=== PATIENT | male | born 1980 | race Caucasian/White ===

== ENCOUNTER 2020-06-12 23:14 | Emergency (ER) | payer OTHER ==
[2020-06-12] MEDS ORDERED: Sodium Chloride 0.9% 10 ML Syringe FLUSH PRN (23:27)
[2020-06-12] MEDS ORDERED: Aspirin 81 MG Tab.Chew PO ONE (23:27)
[2020-06-12] MEDS ORDERED: Sodium Chloride 0.9% 2.5 ML Syringe FLUSH PRN (23:27)
[2020-06-12] MEDS ORDERED: Nitroglycerin 0.4 MG Tab.SL SL PRN (23:27)
--- NOTE | 2020-06-12 23:33 | EDM.PDOC ---
ED HPI GENERAL MEDICAL PROBLEM - General Chief Complaint: Chest Pain Stated Complaint: CHEST PAIN,SHORTNESS OF BREATHE Time Seen by Provider: 06/12/20 23:23 - History of Present Illness INITIAL COMMENTS - FREE TEXT/NARRATIVE: History of present illness: [] Woke up with chest pain at 1130 this morning. He got a little worse when he went to work. When he rested it was little better but when he got up moved around tonight it was worse. He has intermittent diaphoresis today. He also has shortness of breath. He does not have a seizure. Pain is a burning across the anterior chest. Moderately severe at times. Review of systems: As per history of present illness and below otherwise all systems reviewed and negative. Past medical history: As per history of present illness and as reviewed below otherwise noncontributo ry. Diabetic or hypertensive but does have cholesterol issues Surgical history: As per history of present illness and as reviewed below otherwise noncontributory. Number smoker Social history: No reported history of drug or alcohol abuse. Family history: As per history of present illness and as reviewed below otherwise noncontributory. No heart attacks but grandmother had a stroke in her 80s Physical exam: Constitutional - well developed, well-nourished and in no acute distress HEENT - normocephalic, no evidence of trauma - external nose and mouth normal - no mass in neck and no JVD - mucosae moist EYES - full EOM, PERRL, no icterus - no evidence of inflammation, injection, or drainage Respiratory - no respiratory distress, equal bilateral expansion, lungs clear to auscultation and no abnormal lung sounds Cardiovascular - Regular Rhythm with S1 and S2 appreciated and no murmur, gallop or rub. GI - abdomen soft without distension or organomegaly - normal bowel sounds - no guard or rebound Musculoskeletal no gross deformity of long bones or joints - no tenderness, swelling or edema Neurologic - Alert and oriented times four - CN II-XII grossly intact - motor sensory and coordination symmetrically normal Psychiatric - appropriate mood and affect with normal thought content Hematologic - No petechiae or purpura - mucosa appropriate color and sclera not pale - normal nail bed color and refill Integument - no rash or evidence of trauma - normal turgor Diagnostics: [] Therapeutics: [] Impression: [] Plan: [] Definitive disposition and diagnosis as appropriate pending reevaluation and review of above. chest Pain Score (Numeric/FACES): 4 - Related Data Allergies Allergy/AdvReac Type Severity Reaction Status Date / Time erythromycin base Allergy Nausea and Verified 06/12/20 23:21 Vomiting Home Meds: Home Meds Amitriptyline [Elavil] 50 mg PO DAILY 06/12/20 [History] Divalproex Sodium [Depakote] 250 mg PO DAILY 06/12/20 [History] SUMAtriptan succinate [Imitrex] 1 dose IM BID PRN 06/12/20 [History] Past Medical History Neurological History: Reports: Migraines - Infectious Disease History Infectious Disease History: Reports: Chicken Pox - Past Surgical History GI Surgical History: Reports: Appendectomy, Cholecystectomy Male Surgical History: Reports: Varicocele Resection Social & Family History - Family History Neurological: Reports: CVA - Tobacco Use Smoking Status *Q: Former Smoker Used Tobacco, but Quit: Yes Month/Year Tobacco Last Used: March 2017 - Recreational Drug Use Recreational Drug Use: No ED ROS GENERAL - Review of Systems Review Of Systems: Comprehensive ROS is negative, except as noted in HPI. ED EXAM, GENERAL - Physical Exam Exam: See Below Free Text/Narrative:: My physical exam as in the HPI EKG INTERPRETATION EKG Date: 06/12/20 Rhythm: NSR Rate (Beats/Min): 82 [place]: LAD-Left [place] Deviation P-Wave: Present QRS: Normal ST-T: Normal Comparison: NA - No Prior EKG EKG Interpretation Comments: Normal except left axis deviation Course - Vital Signs Text/Narrative:: 12:04 AM patient got a lot better with one nitroglycerin. Pain-free in the department. He has risk factors his age 40 EKG is normal troponin is normal heart score is in the 1-3 range. Repeat troponin is negative. Plan stress test as an outpatient. Return if worse. Last Recorded V/S: Last Vital Signs Temp 98.5 F 06/12/20 23:17 Pulse 89 06/13/20 00:54 Resp 16 06/13/20 00:54 BP 132/88 06/13/20 00:54 Pulse Ox 98 06/13/20 00:54 - Orders/Labs/Meds Orders: Active Orders 24 hr Category Date Time Status Cardiac Monitoring [RC] . DIRECTED Care 06/12/20 23:27 Active EKG Documentation Completion [RC] AM Care 06/12/20 23:27 Active Nitroglycerin [Nitrostat] Med 06/12/20 23:27 Active 0.4 mg SL Q5M PRN Sodium Chloride 0.9% [Saline Flush] Med 06/12/20 23:27 Active 10 ml FLUSH ASDIRECTED PRN Sodium Chloride 0.9% [Saline Flush] Med 06/12/20 23:27 Active 2.5 ml FLUSH ASDIRECTED PRN Saline Lock Insert [OM.PC] Stat Oth 06/12/20 23:27 Ordered Medication Orders Nitroglycerin (Nitrostat) 0.4 mg SL Q5M PRN PRN Reason: Chest Pain Last Admin: 06/12/20 23:38 Dose: 0.4 mg Documented by: [email or web address] Sodium Chloride (Saline Flush) 10 ml FLUSH ASDIRECTED PRN PRN Reason: Keep Vein Open Sodium Chloride (Saline Flush) 2.5 ml FLUSH ASDIRECTED PRN PRN Reason: Keep Vein Open Labs: Laboratory Tests 06/12/20 06/12/20 06/13/20 Range/Units 23:30 23:30 01:48 WBC 9.25 (4.0-11.0) K/uL RBC 5.05 (4.50-5.90) M/uL Hgb 16.0 (13.0-17.0) g/dL Hct 45.6 (38.0-50.0) % MCV 90.3 (80.0-98.0) fL MCH 31.7 (27.0-32.0) pg MCHC 35.1 (31.0-37.0) g/dL RDW Std Deviation 42.7 (28.0-62.0) fl RDW Coeff of Pablo 13 (11.0-15.0) % Plt Count 227 (150-400) K/uL MPV 10.10 (7.40-12.00) fL Neut % (Auto) 53.2 (48.0-80.0) % Lymph % (Auto) 33.6 (16.0-40.0) % [place] % (Auto) 8.8 (0.0-15.0) % Eos % (Auto) 4.0 (0.0-7.0) % Baso % (Auto) 0.4 (0.0-1.5) % Neut # (Auto) 4.9 (1.4-5.7) K/uL Lymph # (Auto) 3.1 H (0.6-2.4) K/uL [place] # (Auto) 0.8 (0.0-0.8) K/uL Eos # (Auto) 0.4 (0.0-0.7) K/uL Baso # (Auto) 0.0 (0.0-0.1) K/uL Sodium 142 (136-148) mmol/L Potassium 4.0 (3.5-5.1) mmol/L Chloride 106 (98-107) mmol/L Carbon Dioxide 27.2 (21.0-32.0) mmol/L BUN 18 (7.0-18.0) mg/dL Creatinine 1.0 (0.8-1.3) mg/dL Est Cr Clr Drug Dosing 97.21 mL/min Estimated GFR (MDRD) > 60.0 ml/min Glucose 83 (74-106) mg/dL Calcium 9.2 (8.5-10.1) mg/dL Total Bilirubin 0.4 (0.2-1.0) mg/dL AST 35 (15-37) IU/L ALT 96 H (14-63) IU/L Alkaline Phosphatase 61 (46-116) U/L Troponin I < 0.050 < 0.050 (0.000-0.056) ng/mL Total Protein 7.9 (6.4-8.2) g/dL Albumin 4.2 (3.4-5.0) g/dL Globulin 3.7 (2.6-4.0) g/dL Albumin/Globulin Ratio 1.1 (0.9-1.6) Lipase 224 (73-393) U/L Meds: Medications Generic Name Dose Route Start Last Admin Trade Name Freq PRN Reason Stop Dose Admin Nitroglycerin 0.4 mg 06/12/20 23:27 06/12/20 23:38 Nitrostat SL 0.4 mg Q5M PRN Administration Chest Pain Sodium Chloride 10 ml 06/12/20 23:27 Saline Flush FLUSH ASDIRECTED PRN Keep Vein Open Sodium Chloride 2.5 ml 06/12/20 23:27 Saline Flush FLUSH ASDIRECTED PRN Keep Vein Open Discontinued Medications Generic Name Dose Route Start Last Admin Trade Name Solis PRN Reason Stop Dose Admin Aspirin 324 mg 06/12/20 23:27 06/12/20 23:37 Aspirin PO 06/12/20 23:28 324 mg ONETIME ONE Administration Departure - Departure Time of Disposition: 02:20 Disposition: Home, Self-Care 01 Clinical Impression: Atypical chest pain - Discharge Information Instructions: Nonspecific Chest Pain, Adult Forms: ED Department Discharge Additional Instructions: [facility] - cardiology [address] [place] [id number] [facility] - Primary Care [address] [place] [id number] [facility] [place] [address] [place] [id number] The following information is given to patients seen in the emergency department who are being discharged to home. This information is to outline your options for follow-up care. We provide all patients seen in our emergency department with a follow-up referral. The need for follow-up, as well as the timing and circumstances, are variable depending upon the specifics of your emergency department visit. If you don't have a primary care physician on staff, we will provide you with a referral. We always advise you to contact your personal physician following an emergency department visit to inform them of the circumstance of the visit and for follow-up with them and/or the need for any referrals to a consulting specialist. The emergency department will also refer you to a specialist when appropriate. This referral assures that you have the opportunity for follow-up care with a specialist. All of these measure are taken in an effort to provide you with optimal care, which includes your follow-up. Under all circumstances we always encourage you to contact your private physician who remains a resource for coordinating your care. When calling for follow-up care, please make the office aware that this follow-up is from your recent emergency room visit. If for any reason you are refused follow-up, please contact the [facility] Emergency Department at and asked to speak to the emergency department charge nurse. Sepsis Event Note (ED) - Evaluation Sepsis Screening Result: No Definite Risk - Focused Exam Vital Signs: Vital Signs Temp Pulse Resp BP BP Pulse Ox 06/13/20 00:54 89 16 132/88 98 06/13/20 00:06 81 16 145/86 H 99 06/12/20 23:45 103 H 147/97 H 06/12/20 23:41 104 H 16 149/104 H 97 06/12/20 23:38 156/108 H 06/12/20 23:17 98.5 F 107 H 18 178/113 H 100 - My Orders Last 24 Hours: My Active Orders 06/12/20 23:27 Cardiac Monitoring [RC] . DIRECTED EKG Documentation Completion [RC] AM Nitroglycerin [Nitrostat] 0.4 mg SL Q5M PRN Sodium Chloride 0.9% [Saline Flush] 10 ml FLUSH ASDIRECTED PRN Sodium Chloride 0.9% [Saline Flush] 2.5 ml FLUSH ASDIRECTED PRN Saline Lock Insert [OM.PC] Stat - Assessment/Plan Last 24 Hours: My Active Orders 06/12/20 23:27 Cardiac Monitoring [RC] . DIRECTED EKG Documentation Completion [RC] AM Nitroglycerin [Nitrostat] 0.4 mg SL Q5M PRN Sodium Chloride 0.9% [Saline Flush] 10 ml FLUSH ASDIRECTED PRN Sodium Chloride 0.9% [Saline Flush] 2.5 ml FLUSH ASDIRECTED PRN Saline Lock Insert [OM.PC] Stat
[2020-06-13 00:27] LABS: BLOOD UREA NITROGEN,BUN 18 mg/dL (7.0-18.0); CARBON DIOXIDE,CO2 27.2 mmol/L (21.0-32.0); CHLORIDE,CL 106 mmol/L (98-107); GLUCOSE RANDOM 83 mg/dL (74-106); LIPASE 224 U/L (73-393); SODIUM,NA 142 mmol/L (136-148)
--- NOTE | 2020-06-13 00:39 | CR ---
Indication: Chest pain Technique: Chest 1 view Comparison: None Findings/Impression: Cardiovascular and mediastinum: Heart size and vasculature are normal in caliber and appearance. Lungs and pleural space: Lungs are clear. No sign of infiltrate or mass. No sign of pleural effusion. No pneumothorax. Bones and soft tissues: No acute findings. Dictated by Remberto Brunner MD @ Jun 13 2020 12:36AM Signed by Dr. Remberto Brunner @ Jun 13 2020 12:37AM
== END 2020-06-13 02:46 | disposition home or self-care (01) ==
LOC: MW.ED 23:14
DX: R07.89 Other chest pain (principal); Z88.1 Allergy status to other antibiotic agents; Z87.891 Personal history of nicotine dependence; Z79.899 Other long term (current) drug therapy
CPT/HCPCS: 36415; 71045; 80053; 83690; 84484; 85025; 93005; 99285; A9270; 99283

== ENCOUNTER 2021-11-18 20:14 | Emergency (ER) | payer OTHER ==
[2021-11-18] MEDS ORDERED: Lactated Ringers 1,000 ML IV ONE (20:36)
[2021-11-18] MEDS ORDERED: Ondansetron 4 MG/2 ML SDV IVPUSH ONE (20:37)
[2021-11-18] MEDS ORDERED: Morphine 4 MG/ML VIAL IVPUSH ONE (20:42)
[2021-11-18 21:26] LABS: CORONAVIRUS COVID-19 NAA NEGATIVE (NEGATIVE); INFLUENZA A NAA NEGATIVE (NEGATIVE); INFLUENZA B NAA NEGATIVE (NEGATIVE)
[2021-11-18] MEDS ORDERED: Iopamidol 755 MG/ML 500 ML Multipack Bottle IVPUSH ONE (21:26)
[2021-11-18 21:29] LABS: BLOOD UREA NITROGEN,BUN 20 mg/dL (7.0-18.0); CARBON DIOXIDE,CO2 22.3 mmol/L (21.0-32.0); CHLORIDE,CL 104 mmol/L (98-107); GLUCOSE RANDOM 109 mg/dL (74-106); LIPASE 115 U/L (73-393); POTASSIUM,K 3.6 mmol/L (3.5-5.1); SODIUM,NA 141 mmol/L (136-148)
[2021-11-19] MEDS ORDERED: Ondansetron 4 MG Tab.DIS PO ONE (00:01)
[2021-11-19] MEDS ORDERED: Ondansetron 4 MG Tab.DIS ONE (00:02)
== END 2021-11-19 00:09 | disposition home or self-care (01) ==
LOC: MW.ED 20:14
DX: K52.9 Noninfective gastroenteritis and colitis, unspecified (principal); R11.2 Nausea with vomiting, unspecified; Z88.1 Allergy status to other antibiotic agents; Z20.822 Contact with and (suspected) exposure to COVID-19
CPT/HCPCS: 0240U; 36415; 74177; 76705; 80053; 83605; 83690; 83735; 85025; 85610; 87040; 93005; 96374; 99284; A9270; J2405; J7120; Q9967; 93010

== ENCOUNTER 2022-01-29 21:49 | Emergency (ER) | payer OTHER | END 2022-01-29 22:32 | disposition left against medical advice (07) | LOC: MW.ED 21:49 | DX: Z53.21 Procedure and treatment not carried out due to patient leaving prior to being seen by health care provider (principal) ==

== ENCOUNTER 2022-03-22 21:04 | Emergency (ER) | payer BC, OTHER ==
[2022-03-22] MEDS ORDERED: Sodium Chloride 0.9% 2.5 ML Syringe FLUSH PRN (21:08)
[2022-03-22] MEDS ORDERED: Sodium Chloride 0.9% 10 ML Syringe FLUSH PRN (21:08)
[2022-03-22] MEDS ORDERED: Iopamidol 755 MG/ML 500 ML Multipack Bottle IVPUSH STA (21:27)
[2022-03-22 21:38] LABS: BLOOD UREA NITROGEN,BUN 16 mg/dL (7.0-18.0); CARBON DIOXIDE,CO2 22.3 mmol/L (21.0-32.0); CHLORIDE,CL 109 mmol/L (98-107); ESTIMATED GFR 85 mL/min (>60); GLUCOSE RANDOM 107 mg/dL (74-106); POTASSIUM,K 3.4 mmol/L (3.5-5.1); SODIUM,NA 142 mmol/L (136-148)
[2022-03-22] MEDS ORDERED: Ondansetron 4 MG/2 ML SDV IVPUSH ONE (21:58)
[2022-03-23] MEDS ORDERED: Ketorolac 30 MG/ML SDV IVPUSH STA (01:09)
== END 2022-03-23 02:23 | disposition home or self-care (01) ==
LOC: MW.ED 21:04
DX: M25.511 Pain in right shoulder (principal); Z88.1 Allergy status to other antibiotic agents
CPT/HCPCS: 36415; 70450; 71045; 72170; 73000; 73030; 74177; 80053; 85025; 96374; 96375; 99285; J1885; J2405; J3490; Q9967; 99284

== ENCOUNTER 2022-08-18 12:52 | Emergency (ER) | payer OTHER ==
[2022-08-18] MEDS ORDERED: Metoclopramide 10 MG/2 ML SDV IVPUSH ONE (14:58)
[2022-08-18] MEDS ORDERED: Ketorolac 30 MG/ML SDV IVPUSH ONE (14:58)
[2022-08-18] MEDS ORDERED: Ondansetron 4 MG/2 ML SDV IVPUSH ONE (14:58)
[2022-08-18] MEDS ORDERED: diphenhydrAMINE 50 MG/ML SDV IVPUSH ONE (14:58)
[2022-08-18] MEDS ORDERED: Sodium Chloride 0.9% 1,000 ML IV SCH (15:00)
[2022-08-18 16:24] LABS: CARBON DIOXIDE,CO2 26.2 mmol/L (21.0-32.0); POTASSIUM,K 3.2 mmol/L (3.5-5.1)
[2022-08-18] MEDS ORDERED: Potassium Chloride 20 MEQ Tab.ER PO ONE (16:32)
[2022-08-18 16:45] LABS: CORONAVIRUS COVID-19 NAA NEGATIVE (NEGATIVE); INFLUENZA A NAA NEGATIVE (NEGATIVE); INFLUENZA B NAA NEGATIVE (NEGATIVE)
== END 2022-08-18 17:11 | disposition home or self-care (01) ==
LOC: MW.ED 12:52
DX: G43.909 Migraine, unspecified, not intractable, without status migrainosus (principal); E16.2 Hypoglycemia, unspecified; Z88.1 Allergy status to other antibiotic agents; Z20.822 Contact with and (suspected) exposure to COVID-19
CPT/HCPCS: 0240U; 36415; 70450; 80053; 82947; 85025; 96361; 96374; 96375; 99284; A9270; J1200; J1885; J2405; J2765; J7030

== ENCOUNTER 2023-01-23 12:35 | Emergency (ER) | payer OTHER ==
[2023-01-23 14:44] LABS: CORONAVIRUS COVID-19 NAA NEGATIVE (NEGATIVE); INFLUENZA A NAA NEGATIVE (NEGATIVE); INFLUENZA B NAA NEGATIVE (NEGATIVE)
[2023-01-23] MEDS ORDERED: Ondansetron 4 MG/2 ML SDV IVPUSH ONE (15:07)
[2023-01-23] MEDS ORDERED: Sodium Chloride 0.9% 1,000 ML IV ONE (15:07)
[2023-01-23] MEDS ORDERED: Ketorolac 30 MG/ML SDV IVPUSH ONE (15:07)
[2023-01-23 16:27] LABS: CARBON DIOXIDE,CO2 28.5 mmol/L (21.0-32.0); POTASSIUM,K 4.1 mmol/L (3.5-5.1)
== END 2023-01-23 17:00 | disposition home or self-care (01) ==
LOC: MW.ED 12:35
DX: R50.9 Fever, unspecified (principal); Z20.822 Contact with and (suspected) exposure to COVID-19; Z79.899 Other long term (current) drug therapy; Z88.1 Allergy status to other antibiotic agents
CPT/HCPCS: 0240U; 36415; 71045; 80053; 83690; 83735; 84484; 85025; 96361; 96374; 96375; 99284; J1885; J2405; J7030

== ENCOUNTER 2023-02-26 14:43 | Emergency (ER) | payer OTHER ==
[2023-02-26] MEDS ORDERED: Sodium Chloride 0.9% 1,000 ML IV ONE (15:02)
[2023-02-26] MEDS ORDERED: LORazepam 2 MG/ML SDV IVPUSH ONE (15:02)
[2023-02-26] MEDS ORDERED: Ondansetron 4 MG/2 ML SDV IVPUSH ONE (15:03)
[2023-02-26] MEDS ORDERED: Ketorolac 30 MG/ML SDV IVPUSH ONE (15:03)
== END 2023-02-26 17:04 | disposition home or self-care (01) ==
LOC: MW.ED 14:43
DX: G44.209 Tension-type headache, unspecified, not intractable (principal); Z88.1 Allergy status to other antibiotic agents
CPT/HCPCS: 96361; 96374; 96375; 99283; J1885; J2060; J2405; J7030

== ENCOUNTER 2023-05-05 21:01 | Emergency (ER) | payer OTHER ==
[2023-05-05] MEDS ORDERED: Sodium Chloride 0.9% 1,000 ML IV ONE (21:27)
[2023-05-05 22:07] LABS: BASOPHILS PERCENT AUTO 0.3 % (0.0-1.5); EOSINOPHILS ABSOLUTE AUTO 0.3 K/uL (0.0-0.7); EOSINOPHILS PERCENT AUTO 3.9 % (0.0-7.0); HEMATOCRIT 42.3 % (38.0-50.0); HEMOGLOBIN 14.7 g/dL (13.0-17.0); LYMPHOCYTES ABSOLUTE AUTO 0.6 K/uL (0.6-2.4); LYMPHOCYTES PERCENT AUTO 7.9 % (16.0-40.0); MEAN CORPUSCULAR HEMOGLOBIN 30.8 pg (27.0-32.0); MEAN CORPUSCULAR HGB CONC 34.8 g/dL (31.0-37.0); MEAN CORPUSCULAR VOLUME 88.7 fL (80.0-98.0); MONOCYTES ABSOLUTE AUTO 0.7 K/uL (0.0-0.8); MONOCYTES PERCENT AUTO 9.9 % (0.0-15.0); NEUTROPHILS ABSOLUTE AUTO 5.5 K/uL (1.4-5.7); NRBC ABSOLUTE 0 K/uL; PLATELET COUNT,PLT 199 K/uL (150-400); RED BLOOD CELL COUNT 4.77 M/uL (4.50-5.90); WHITE BLOOD CELL COUNT,WBC 7.09 K/uL (4.0-11.0)
[2023-05-05 22:23] LABS: CALCIUM 8.5 mg/dL (8.5-10.1); CARBON DIOXIDE,CO2 23.8 mmol/L (21.0-32.0); CREATININE 1.2 mg/dL (0.8-1.3); EST CRCL DRUG DOSING (CG) 78.56 mL/min; POTASSIUM,K 3.4 mmol/L (3.5-5.1)
== END 2023-05-05 23:28 | disposition home or self-care (01) ==
LOC: MW.ED 21:01
DX: M25.562 Pain in left knee (principal); M25.561 Pain in right knee; R68.83 Chills (without fever)
CPT/HCPCS: 36415; 80048; 83605; 85025; 85652; 99283; J7030; 99284

== ENCOUNTER 2023-05-06 17:38 | Emergency (ER) | payer OTHER | END 2023-05-06 21:15 | disposition home or self-care (01) | LOC: MW.ED 17:38 | DX: U07.1 COVID-19 (principal); Z88.1 Allergy status to other antibiotic agents | CPT/HCPCS: 99283; 99284 ==

== ENCOUNTER 2023-07-21 09:00 | Emergency (ER) | payer OTHER ==
[2023-07-21 10:08] LABS: CORONAVIRUS COVID-19 NAA NEGATIVE (NEGATIVE); INFLUENZA A NAA NEGATIVE (NEGATIVE); INFLUENZA B NAA NEGATIVE (NEGATIVE)
== END 2023-07-21 10:41 | disposition home or self-care (01) ==
LOC: MW.ED 09:00
DX: J06.9 Acute upper respiratory infection, unspecified (principal); Z20.822 Contact with and (suspected) exposure to COVID-19; Z88.1 Allergy status to other antibiotic agents; Z79.899 Other long term (current) drug therapy
CPT/HCPCS: 0240U; 71046; 99283

== ENCOUNTER 2023-07-24 13:44 | Emergency (ER) | payer OTHER ==
[2023-07-24 16:06] LABS: BASOPHILS ABSOLUTE AUTO 0.06 K/uL (0.00-0.20); BASOPHILS PERCENT AUTO 0.8 % (0.0-1.0); EOSINOPHILS ABSOLUTE AUTO 0.34 K/uL (0.00-0.45); EOSINOPHILS PERCENT AUTO 4.3 % (0.0-6.0); HEMATOCRIT 44.2 % (42.0-52.0); HEMOGLOBIN 15.7 g/dL (14.0-18.0); IMMATURE GRAN ABSOLUTE AUTO 0.05 K/uL (0.00-0.05); IMMATURE GRAN PERCENT AUTO 0.6 % (0.0-0.4); LYMPHOCYTES ABSOLUTE AUTO 2.57 K/uL (1.00-4.80); LYMPHOCYTES PERCENT AUTO 32.6 % (24.0-44.0); MEAN CORPUSCULAR HEMOGLOBIN 31.1 pg (28.0-32.0); MEAN CORPUSCULAR HGB CONC 35.5 g/dL (32.0-36.0); MEAN CORPUSCULAR VOLUME 87.5 fL (83.0-99.0); MEAN PLATELET VOLUME 10.1 fL (9.4-12.4); MONOCYTES ABSOLUTE AUTO 0.54 K/uL (0.00-0.80); MONOCYTES PERCENT AUTO 6.9 % (0.0-8.0); NEUTROPHILS ABSOLUTE AUTO 4.32 K/uL (1.80-7.70); NEUTROPHILS PERCENT AUTO 54.8 % (41.0-71.0); PLATELET COUNT,PLT 241 K/uL (150-400); RED BLOOD CELL COUNT 5.05 M/uL (4.52-5.90); WHITE BLOOD CELL COUNT,WBC 7.88 K/uL (3.9-11.3)
[2023-07-24 16:31] LABS: ALBUMIN 4.2 g/dL (3.4-5.0); BILIRUBIN TOTAL 0.6 mg/dL (0.2-1.0); CARBON DIOXIDE,CO2 28.7 mmol/L (21.0-32.0); CREATININE 1.1 mg/dL (0.8-1.3); EST CRCL DRUG DOSING (CG) 85.7 mL/min; POTASSIUM,K 3.8 mmol/L (3.5-5.1); PROTEIN TOTAL,TP 8.2 g/dL (6.4-8.2)
[2023-07-24 16:47] LABS: CORONAVIRUS COVID-19 NAA NEGATIVE (NEGATIVE); INFLUENZA A NAA NEGATIVE (NEGATIVE); INFLUENZA B NAA NEGATIVE (NEGATIVE)
== END 2023-07-24 18:31 | disposition home or self-care (01) ==
LOC: MW.ED 13:44
DX: J40 Bronchitis, not specified as acute or chronic (principal); Z20.822 Contact with and (suspected) exposure to COVID-19; Z88.1 Allergy status to other antibiotic agents
CPT/HCPCS: 0240U; 36415; 80053; 84484; 85025; 85379; 93005; 99285; 93010; 99283

== ENCOUNTER 2024-11-12 06:30 | Emergency (ER) | payer OTHER ==
[2024-11-12] MEDS: Sodium Chloride 0.9% 1,000 ML IV ONE ×2 (06:46→07:57)
[2024-11-12] MEDS: Ondansetron 4 MG/2 ML SDV IVPUSH ONE ×2 (06:47→07:25)
[2024-11-12 06:54] LABS: BASOPHILS ABSOLUTE AUTO 0.04 K/uL (0.00-0.20); BASOPHILS PERCENT AUTO 0.6 % (0.0-1.0); HEMATOCRIT 44.6 % (42.0-52.0); IMMATURE GRAN ABSOLUTE AUTO 0.02 K/uL (0.00-0.05); IMMATURE GRAN PERCENT AUTO 0.3 % (0.0-0.4); LYMPHOCYTES ABSOLUTE AUTO 1.82 K/uL (1.00-4.80); LYMPHOCYTES PERCENT AUTO 27.2 % (24.0-44.0); MEAN CORPUSCULAR HEMOGLOBIN 31.3 pg (28.0-32.0); MEAN CORPUSCULAR HGB CONC 35.9 g/dL (32.0-36.0); MEAN CORPUSCULAR VOLUME 87.1 fL (83.0-99.0); MONOCYTES ABSOLUTE AUTO 0.87 K/uL (0.00-0.80); NEUTROPHILS ABSOLUTE AUTO 3.55 K/uL (1.80-7.70); NEUTROPHILS PERCENT AUTO 52.9 % (41.0-71.0); PLATELET COUNT,PLT 215 K/uL (150-400); RED BLOOD CELL COUNT 5.12 M/uL (4.52-5.90)
[2024-11-12 07:32] LABS: A/G RATIO 0.9 (0.9-1.6); ALBUMIN 3.8 g/dL (3.4-5.0); BILIRUBIN DIRECT 0.2 mg/dL (0.0-0.5); BILIRUBIN INDIRECT 0.5; BILIRUBIN TOTAL 0.7 mg/dL (0.2-1.0); CALCIUM 8.7 mg/dL (8.5-10.1); CARBON DIOXIDE,CO2 24.9 mmol/L (21.0-32.0); CREATININE 1.2 mg/dL (0.8-1.3); EST CRCL DRUG DOSING (CG) 72.68 mL/min; POTASSIUM,K 3.5 mmol/L (3.5-5.1); PROTEIN TOTAL,TP 7.8 g/dL (6.4-8.2)
== END 2024-11-12 09:05 | disposition home or self-care (01) ==
LOC: MW.ED 06:30
DX: K52.9 Noninfective gastroenteritis and colitis, unspecified (principal); Z88.1 Allergy status to other antibiotic agents; Z79.899 Other long term (current) drug therapy; Z90.49 Acquired absence of other specified parts of digestive tract
CPT/HCPCS: 36415; 80048; 80076; 83690; 85025; 87428; 96361; 96374; 99284; J2405; J7030